=== PATIENT | female | born 1960 ===

== ENCOUNTER 2018-04-10 17:45 | Outpatient (REF) | payer OTHER, SELFPAY ==
--- NOTE | 2018-04-10 16:45 | PAPFT_PTH ---
[id number]GE/SX: 58/F ROOM: RE04/10/[address]: hSeila Wagner : 1960 BED: DIS: 04/10/2018 SPEC #: [id number] RECD: 04/11/18 12:33 STATUS: DOUG REJose #: [id number] CHELESA: 04/10/18 16:[address]: Sheila Wagner DEPT: [facility] Cytology RECD BY: Corin Hutchinson Tissues: 1 - CX/ENDOCX FOR PAP SMEARS Procedures: PAP THIN PREP/[facility] Screening HPV DNA PROBE Comments: [id number] (CHLAMYDIA/GC)
[2018-04-12 13:05] LABS: Chlamydia Result Negative; GC Result Negative; Specimen Description SEE COMMENTS
== END 2018-04-10 18:05 ==
LOC: NCHCN 17:45
PROVIDERS: PCP Family Medicine; Visit Provider Family Medicine
DX: Z00.00 Encounter for general adult medical examination without abnormal findings (principal); Z12.4 Encounter for screening for malignant neoplasm of cervix; Z11.51 Encounter for screening for human papillomavirus (HPV); Z11.3 Encounter for screening for infections with a predominantly sexual mode of transmission
CPT/HCPCS: 87491; 87591; 88142; 87624

== ENCOUNTER 2018-09-17 17:12 | Outpatient (REF) | payer OTHER, SELFPAY ==
[2018-09-17 21:36] LABS: C-Reactive Protein 0.83 mg/dL (0.0-0.3)
[2018-09-17 22:14] LABS: ESR 7 MM/HR (0-30)
== END 2018-09-17 17:32 ==
LOC: NCHCN 17:12
PROVIDERS: Visit Provider Registered Nurse
DX: M54.2 Cervicalgia (principal)
CPT/HCPCS: 85652; 86140